=== PATIENT | female | born 1995 | race Hispanic/Latino ===

== ENCOUNTER 2025-06-06 12:45 | Emergency (ER) | payer OTHER ==
[~2025-06-06] VITALS: Ht 152.4 cm; Wt 68.5 kg
[2025-06-06] MEDS ORDERED: KEPP1TAB PO (13:06)
[2025-06-06] MEDS ORDERED: IBUP200C28 PO (13:08)
[2025-06-06 13:33] LABS: ETHYL ALCOHOL (ETHANOL) < 0.003 % (0.000-0.010)
[2025-06-06 13:34] LABS: SALICYLATE LEVEL < 3.0 MG/DL (<30)
[2025-06-06 13:35] LABS: ALT/SGPT 45 U/L (7.0-40); AST/SGOT 27 U/L (<34); CALCIUM LEVEL 8.5 MG/DL (8.5-10.1); CARBON DIOXIDE LEVEL 24 MMOL/L (20-31); CHLORIDE LEVEL 109 MMOL/L (98-107); CREATININE FOR GFR 0.63 MG/DL (0.55-1.30); GLOMERULAR FILTRATION RATE > 90.0 (>60); POTASSIUM SERUM 3.5 MMOL/L (3.5-5.1); SODIUM LEVEL 144 MMOL/L (136-145)
[2025-06-06 13:39] LABS: OSMOLALITY SERUM 299 MOSM/KG (275-295)
[2025-06-06 13:40] LABS: BASO # 0.0 10^3/uL (0.0-0.2); BASO % 0.3 % (0.0-1.0); EOS # 0.1 10^3/uL (0.0-0.5); EOS % 2.1 % (0.0-3.0); LYMPH # 1.7 10^3/uL (1.5-5.0); LYMPH % 27.7 % (24.0-44.0); MONO # 0.4 10^3/uL (0.0-0.8); MONO % 6.1 % (2.0-8.0); NEUTROPHILS # 4.0 10^3/uL (1.5-8.5); NEUTROPHILS % 63.6 % (36.0-66.0); PLATELET COUNT, AUTOMATED 275 10^3/uL (150-450)
[2025-06-06 13:58] LABS: AMPHETAMINES LEVEL URINE NEGATIVE (NEGATIVE); BARBITURATES URINE NEGATIVE (NEGATIVE); BENZODIAZEPINES URINE NEGATIVE (NEGATIVE); CANNABINOIDS URINE NEGATIVE (NEGATIVE); COCAINE METABOLITE URINE NEGATIVE (NEGATIVE); METHADONE URINE NEGATIVE (NEGATIVE); OPIATES URINE NEGATIVE (NEGATIVE); PHENCYCLIDINE URINE NEGATIVE (NEGATIVE)
[2025-06-06 15:23] LABS: HCG, SERUM QUALITATIVE NEGATIVE (NEGATIVE)
[2025-06-06] MEDS: levETIRAcetam INJection 1,000 MG in IV 1 EA IV ONE (15:35)
[2025-06-06] MEDS: NS 500 ML IV ONE ×2 (15:35→16:56)
[2025-06-06 15:36] LABS: CPK CREATINE PHOSPHOKINASE 43 U/L (34-145)
[2025-06-06 17:15] VITALS: BP 101/59
[2025-06-06] MEDS ORDERED: KEPP10002 PO (17:26)
[2025-06-06 17:30] VITALS: TEMP 98.3; O2SAT 100
== END 2025-06-06 17:46 | disposition home or self-care (01) ==
LOC: M ED 12:45 → EDBD 12:45 → M ED 17:46
DX: G40.909 Epilepsy, unspecified, not intractable, without status epilepticus (principal); R00.1 Bradycardia, unspecified; Z86.73 Personal history of transient ischemic attack (TIA), and cerebral infarction without residual deficits; Z79.1 Long term (current) use of non-steroidal anti-inflammatories (NSAID); Z79.899 Other long term (current) drug therapy
CPT/HCPCS: 70450; 71045; 80047; 80048; 80076; 80143; 80307; 82077; 82140; 82550; 83605; 83930; 84443; 84703; 85025; 93005; 93041; 94760; 96365; 99285; J1953